=== PATIENT | female | born 1940 | race Two or more races ===

== ENCOUNTER 2020-06-09 08:46 | Inpatient (IN) | payer OTHER ==
[~2020-06-09] VITALS: Ht 160 cm; Wt 92.4 kg
[~2020-06-09 08:46] MED LIST: CALC600T10 OR; HYDR-4607 PO; OMEP20CA74 OR
[2020-06-09] MEDS ORDERED: SODIUM CHLORIDE 0.9% 1,000 ML IV ONE (10:27)
[2020-06-09 11:59] LABS: Urine Bacteria NONE SEEN /hpf (None Seen); Urine Blood Negative /uL (Negative); Urine Mucus FEW (None Seen); Urine WBC 1 /hpf (0 - 5)
[2020-06-09 13:20] LABS: Basophils # (auto) 0 10 ^3/uL (0-0.2); Basophils % (auto) 0.1 % (0.0-2.0); Eosinophils # (auto) 0 10 ^3/uL (0-0.8); Hemoglobin 13.3 g/dL (12.2-16.2); Lymphocytes # (auto) 0.5 10 ^3/uL (0.4-5.4); Lymphocytes % (auto) 3.6 % (10.0-50.0); Mean Corpuscular Hemoglobin 32.2 pg (28.0-32.0); Mean Corpuscular Hgb Conc. 33.1 g/dL (32.0-36.0); Monocytes # (auto) 0.4 10 ^3/uL (0-1.3); Neutrophils # (auto) 11.8 10 ^3/uL (1.6-8.6); Neutrophils % (auto) 93.3 % (37.0-80.0); Platelet Count (auto) 171 10^3/uL (140-450); Red Blood Cells 4.12 10^6/uL (4.0-5.20); Red Cell Distribution Width 14.9 % (11.8-14.3); White Blood Cell 12.7 10^3/uL (4.4-10.8)
[2020-06-09 13:38] LABS: INR 1.05 (0.9-1.15)
[2020-06-09 13:43] LABS: Albumin 3.4 g/dL (3.4-5.0); BUN/Creatinine Ratio 21.2; Magnesium 2.4 mg/dL (1.6-2.6); Potassium 3.6 mmol/L (3.5-5.1)
[2020-06-09 13:46] LABS: Bilirubin, Total 0.8 mg/dL (0.2-1.0)
[2020-06-09] MEDS ORDERED: NITROGLYCERIN 0.4 MG SL TAB SL PRN ×2 (16:15→17:15)
[2020-06-09] MEDS ORDERED: MORPHINE SULF INJ 2 MG/ML SYRINGE 1ML IV PRN ×3 (16:15→17:15)
[2020-06-09] MEDS ORDERED: hydrALAZINE HCL 20 MG/ML VL IV PRN (17:15)
[2020-06-09] MEDS ORDERED: LORazepam 0.5 MG TAB PO PRN (17:15)
[2020-06-09] MEDS ORDERED: ALUM & MAG HYDROX-SIMETH LIQ(MAALOX) 30 ML PO PRN (17:15)
[2020-06-09] MEDS ORDERED: ONDANSETRON HCL 4 MG/2 ML VIAL IV PRN (17:15)
[2020-06-09] MEDS ORDERED: HYDROcodone-ACET 5/325MG TAB PO PRN (17:15)
[2020-06-09] MEDS ORDERED: DOCUSATE SOD 100 MG CAP PO PRN (17:15)
[2020-06-09] MEDS ORDERED: cefTRIAXone 1GM/50ML D5W 50 ML IV ONE (17:15)
[2020-06-09] MEDS ORDERED: CALCIUM W/VIT D (600MG/400IU) TAB PO ONE (17:15)
--- NOTE | 2020-06-09 17:50 | NUR ---
PATIENT UP TO TELEMETRY FLOOR FROM ER. ADMITTED WITH RIGHT HIP FRACTURE. VITALS STABLE AND PATIENT STATES SHE HAS NO COMPLAINTS OF PAIN AT THIS TIME UNLESS SHE MOVES HER RIGHT LEG. WAS MEDICATED IN THE ER FOR PAIN
[2020-06-09 18:15] VITALS: BP 138/58
[2020-06-09] MEDS: SODIUM CHLORIDE 0.9% 1,000 ML IV SCH (18:20)
[2020-06-09 18:32] LABS: Cholesterol 181 mg/dL (< 200); HDL Cholesterol 41 mg/dL (40-59); LDL Cholesterol 127 mg/dL (< 100); Triglycerides 120 mg/dL (< 150)
[2020-06-09 18:44] VITALS: BP 138/58
[2020-06-09 18:48] LABS: Alcohol, Urine < 3.0 mg/dL (0-10); Amphetamine Screen, Urine NEGATIVE (NEGATIVE); Barbiturate Scree,Urine NEGATIVE (NEGATIVE); Benzodiazephine Screen, Urine NEGATIVE (NEGATIVE); Cannabinoid Screen, Urine NEGATIVE (NEGATIVE); Cocaine Screen, Urine NEGATIVE (NEGATIVE); Opiate Scree,Urine NEGATIVE (NEGATIVE); Phencyclidine Screen, Urine NEGATIVE (NEGATIVE)
--- NOTE | 2020-06-09 19:30 | NUR ---
Opening shift note Patient A&Ox4, no SOB, or s/s of distress. Tilley intact draining clear yellow urine. Discussed POC with patient who verbalized understanding. Patient stated that she did not have pain as long as she doesn't move her right hip/leg. Bed in lowest locked position with 2 side rails up, call light within reach. Will continue to monitor.
[2020-06-09 22:00] VITALS: BP 138/66
[2020-06-10 05:00] VITALS: BP 146/68
--- NOTE | 2020-06-10 05:30 | NUR ---
COVID SWAB TAKEN AND SENT TO LAB
[2020-06-10 06:04] LABS: Basophils # (auto) 0 10 ^3/uL (0-0.2); Basophils % (auto) 0.1 % (0.0-2.0); Eosinophils # (auto) 0 10 ^3/uL (0-0.8); Eosinophils % (auto) 0.1 % (0.0-7.0); Hematocrit 35.6 % (36.0-46.0); Hemoglobin 11.7 g/dL (12.2-16.2); Lymphocytes # (auto) 1.4 10 ^3/uL (0.4-5.4); Lymphocytes % (auto) 16.6 % (10.0-50.0); Mean Corpuscular Hemoglobin 32.1 pg (28.0-32.0); Mean Corpuscular Hgb Conc. 32.9 g/dL (32.0-36.0); Mean Corpuscular Volume 97.6 fL (80.0-100.0); Monocytes # (auto) 0.9 10 ^3/uL (0-1.3); Monocytes % (auto) 10.6 % (0.0-12.0); Neutrophils % (auto) 72.6 % (37.0-80.0); Platelet Count (auto) 162 10^3/uL (140-450); Red Blood Cells 3.64 10^6/uL (4.0-5.20); Red Cell Distribution Width 15.2 % (11.8-14.3); White Blood Cell 8.2 10^3/uL (4.4-10.8)
[2020-06-10 06:18] LABS: INR 1.03 (0.9-1.15); Partial Thromboplastin Time 26.7 sec (23.0-31.2)
[2020-06-10 06:31] LABS: Potassium 3.7 mmol/L (3.5-5.1)
[2020-06-10 06:42] LABS: BUN/Creatinine Ratio 21.2; Calcium 8.3 mg/dL (8.5-10.1); Magnesium 2.5 mg/dL (1.6-2.6); Phosphorus 3.5 mg/dL (2.5-4.90); Total Protein 6.3 g/dL (6.4-8.2)
[2020-06-10] MEDS: LEVOTHYROXINE SODIUM 25 MCG TAB PO SCH (07:30)
[2020-06-10 08:48] VITALS: BP 133/63
[2020-06-10] MEDS ORDERED: ENOXAPARIN SOD 40 MG/0.4 ML SYRINGE SC SCH (10:00)
--- NOTE | 2020-06-10 11:05 | NUR ---
LEFT MESSAGE WITH DR. CARRINGTON REGARDING CARDIO CONSULT FOR SURGICAL CLEARANCE. HE STATED HE DID NOT GET THE PREVIOUS MESSAGE BUT WILL TAKE OF THE CONSULT. ZEB WAS NOTIFIED PATIENT IS SCHEDULED FOR SURGERY AT 0900 TOMORROW
[2020-06-10] MEDS: cefTRIAXone 1GM/50ML D5W 50 ML IV SCH (11:17)
[2020-06-10] MEDS: CALCIUM W/VIT D (600MG/400IU) TAB PO SCH (11:17)
[2020-06-10] MEDS: SODIUM CHLORIDE 0.9% 1,000 ML IV SCH (11:17)
[2020-06-10] MEDS: FLUoxetine HCL 20 MG CAP PO SCH (11:18)
[2020-06-10 12:33] VITALS: BP_SYST 141; BP_SYST 148; BP_DIAS 62; BP_DIAS 69
[2020-06-10 17:00] VITALS: BP 150/81
[2020-06-10] MEDS: ACETAMINOPHEN 325 MG TAB PO PRN (18:06)
--- NOTE | 2020-06-10 19:35 | NUR ---
Opening shift note Patient A&Ox4, respirations even and non-labored with no s/s of distress. Discussed POC, NPO at midnight, and procedure for the following day. Patient verbalized understanding. Tilley patent draining clear yellow urine. IV patent and intact. Bed in lowest locked position with 2 side rails up, call light within reach. Will continue to monitor.
[2020-06-10 22:00] VITALS: BP 129/56
[2020-06-11] VITALS (15 sets, daily range): BP systolic 103–134; BP diastolic 50–88
--- NOTE | 2020-06-11 | NUR ---
VS: HR 85, 95%, 108/55, 98.3, RR 18 Patient A&Ox4 without s/s of distress at this time. Addendum: 06/12/20 at 0249 by GONZALO KAUR RN RN Incorrect date entered. Correct date 06/12/2020
[2020-06-11] MEDS: ACETAMINOPHEN 325 MG TAB PO PRN ×2 (00:41→22:49)
--- NOTE | 2020-06-11 00:45 | NUR ---
Pain Patient c/o 5/10 hip pain. Patient did not want Homer but requested Tylenol. Administered 650 mg Tylenol per EMAR. Will continue to monitor.
--- NOTE | 2020-06-11 04:30 | NUR ---
CHG WIPES/CONSENTS/GOWN CHANGE Applied CHG wipes, and linen/gown change for surgery. Hospital nursing staff assisted with interpreting consents. Patient will discuss further questions she may have with the surgical staff.
[2020-06-11 05:23] LABS: Basophils # (auto) 0 10 ^3/uL (0-0.2); Basophils % (auto) 0.5 % (0.0-2.0); Eosinophils # (auto) 0.1 10 ^3/uL (0-0.8); Eosinophils % (auto) 0.9 % (0.0-7.0); Hematocrit 34.1 % (36.0-46.0); Hemoglobin 11.4 g/dL (12.2-16.2); Lymphocytes # (auto) 1.2 10 ^3/uL (0.4-5.4); Lymphocytes % (auto) 15.3 % (10.0-50.0); Mean Corpuscular Hemoglobin 32.8 pg (28.0-32.0); Mean Corpuscular Hgb Conc. 33.6 g/dL (32.0-36.0); Mean Corpuscular Volume 97.9 fL (80.0-100.0); Monocytes # (auto) 0.8 10 ^3/uL (0-1.3); Neutrophils # (auto) 5.8 10 ^3/uL (1.6-8.6); Neutrophils % (auto) 73.3 % (37.0-80.0); Platelet Count (auto) 139 10^3/uL (140-450); Red Blood Cells 3.48 10^6/uL (4.0-5.20); Red Cell Distribution Width 15.4 % (11.8-14.3)
[2020-06-11 05:37] LABS: INR 1.09 (0.9-1.15); Partial Thromboplastin Time 27.3 sec (23.0-31.2)
[2020-06-11 05:42] LABS: Albumin 2.9 g/dL (3.4-5.0); Calcium 7.5 mg/dL (8.5-10.1); Magnesium 2.4 mg/dL (1.6-2.6); Potassium 3.3 mmol/L (3.5-5.1)
[2020-06-11 05:47] LABS: BUN/Creatinine Ratio 19.2; Bilirubin, Total 0.8 mg/dL (0.2-1.0); Total Protein 6.2 g/dL (6.4-8.2)
[2020-06-11] MEDS: LEVOTHYROXINE SODIUM 25 MCG TAB PO SCH (06:44)
[2020-06-11] MEDS: SODIUM CHLORIDE 0.9% 1,000 ML IV SCH (06:44)
--- NOTE | 2020-06-11 08:20 | NUR ---
Patient left unit to OR.
[2020-06-11] MEDS ORDERED: ceFAZolin 1GM/50ML 50 ML IV ONE (08:26)
[2020-06-11] MEDS ORDERED: TETRACAINE 1% INJ 2 ML VIAL IJ ONE (08:30)
[2020-06-11] MEDS ORDERED: POTASSIUM CHL 20MEQ/100ML 100 ML IV ONE ×2 (08:33→09:45)
[2020-06-11] MEDS ORDERED: fentaNYL CITRATE 100 MCG/2 ML VL ONE (09:24)
[2020-06-11] MEDS ORDERED: MIDAZOLAM HCL 1MG/1ML-2 ML VIAL ONE (09:24)
[2020-06-11] MEDS ORDERED: KETAMINE HCL 10 ML ONE (09:24)
[2020-06-11] MEDS ORDERED: MORPHINE SULF(PF) 0.5MG/ML 10ML VIAL ONE (09:24)
[2020-06-11] MEDS ORDERED: GLYCOPYRROLATE 0.2 MG/ML 1ML VIAL ONE (09:25)
[2020-06-11] MEDS ORDERED: ONDANSETRON HCL 4 MG/2 ML VIAL ONE (09:25)
[2020-06-11] MEDS ORDERED: ePHEDrine SULFATE 50 MG/ML AMP ONE (09:25)
[2020-06-11] MEDS ORDERED: PHENYLEPHRINE HCL 10 MG/ML VL ONE (09:25)
[2020-06-11] MEDS ORDERED: PROPOFOL 10 MG/ML 20 ML IV ONE (09:27)
[2020-06-11] MEDS: CALCIUM W/VIT D (600MG/400IU) TAB PO SCH (10:00)
[2020-06-11] MEDS: FLUoxetine HCL 20 MG CAP PO SCH (10:00)
[2020-06-11] MEDS ORDERED: diphenhdrAMINE HCL 50 MG/1 ML VL IV PRN (12:00)
[2020-06-11] MEDS ORDERED: ONDANSETRON HCL 4 MG/2 ML VIAL IV PRN (12:00)
[2020-06-11] MEDS ORDERED: NALOXONE HCL 0.4 MG/ML VIAL IV PRN (12:00)
[2020-06-11] MEDS ORDERED: NALBUPHINE HCL 10 MG/1ml INJECTION SUBCUT ONE (12:00)
[2020-06-11] MEDS ORDERED: DexAMETHasone SOD PHOS 10MG/1ML VIAL INJ IV PRN (12:00)
--- NOTE | 2020-06-11 12:44 | NUR ---
Patient came back from OR, awake, alert, oriented and verbally responsive. On oxygen 2 L of nasal cannular. No respiratory distress noted. Skin is warm and dry to touch. Dressing to right hip, dry and intact, no drainage or bleeding noted. Denied any pain at this time. Tilley in place and draining clear yellow urine. Will continue to monitor.
--- NOTE | 2020-06-11 13:10 | NUR ---
Per OR PACU patient can resume diet.
[2020-06-11] MEDS: cefTRIAXone 1GM/50ML D5W 50 ML IV SCH (14:10)
[2020-06-11] MEDS ORDERED: LACTATED RINGER'S 1,000 ML IV SCH (15:05)
[2020-06-11] MEDS ORDERED: POTASSIUM CHL 20 Meq TABLET PO ONE (16:45)
--- NOTE | 2020-06-11 16:46 | NUR ---
IS at bedside. Teaching explained, patient verbalized understanding.
[2020-06-11] MEDS: LACTATED RINGER'S 1,000 ML IV SCH (18:26)
--- NOTE | 2020-06-11 19:20 | NUR ---
Opening shift note Assumed care of patient who is A&Ox4, respirations even and non-labored with no s/s of distress or c/o pain. Two dressings to right hip and thigh CDI. Tilley patent, draining clear yellow urine. IV flushed, patent and intact. VS 97.8, HR 110, RR 19, 118/65, 0/10 pain. Bed in lowest locked position with 2 side rails up, call light within reach. Will continue to monitor.
--- NOTE | 2020-06-11 20:00 | NUR ---
VS: 118/65, HR 110, RR 18, 98.4
--- NOTE | 2020-06-11 20:30 | NUR ---
Family for patient called Discussed patients POC and answered questions.
--- NOTE | 2020-06-11 21:00 | NUR ---
VS: HR 96, 98%, RR 18, 104/54 Addendum: 06/12/20 at 0255 by GONZALO KAUR RN RN Dressing clean, dry and intact. No s/s of swelling or bleeding at this time.
--- NOTE | 2020-06-11 22:00 | NUR ---
VS: HR 91, 96%, RR19, 107/50 Addendum: 06/12/20 at 0255 by GONZALO KAUR RN RN Dressing clean, dry, and intact. No s/s of swelling or bleeding at this time.
[2020-06-11] MEDS: ceFAZolin 1GM 2 GM in D5W 5% 100 ML IV SCH (22:48)
--- NOTE | 2020-06-11 22:50 | NUR ---
Pain Patient requesting Tylenol for 5/10 leg pain. Administered 650 mg Tylenol per EMAR. Will continue to monitor.
--- NOTE | 2020-06-11 23:00 | NUR ---
VS: HR 90, 97%, RR 18, 119/51 Addendum: 06/12/20 at 0254 by GONZALO KAUR RN RN Dressings clean, dry and intact. No s/s of swelling or bleeding at this time.
--- NOTE | 2020-06-11 23:55 | NUR ---
Pain reassessed Patient stated that she had no pain at this time. Will continue to monitor.
[2020-06-12] VITALS: BP 108/55
--- NOTE | 2020-06-12 | NUR ---
Patient telemetry box Patient telemetry box unable to be located. Phoned OR with no answer. dimmer board operator went to dept. and unable to locate. Asked for new box but unable to obtain. Will continue to try and locate.
--- NOTE | 2020-06-12 | NUR ---
VS: HR 85, 95%, 108/55, 98.3, RR 18 Patient A&Ox4 without s/s of distress at this time. Dressing clean, dry and intact, no s/s of swelling or bleeding at this time.
[2020-06-12 05:00] VITALS: BP 126/64
[2020-06-12 05:31] LABS: Hematocrit 28.7 % (36.0-46.0); Hemoglobin 9.5 g/dL (12.2-16.2)
[2020-06-12 05:52] LABS: Albumin 2.4 g/dL (3.4-5.0); Calcium 7.4 mg/dL (8.5-10.1); Potassium 3.8 mmol/L (3.5-5.1)
[2020-06-12 05:56] LABS: BUN/Creatinine Ratio 22.9; Bilirubin, Total 0.9 mg/dL (0.2-1.0); Total Protein 5.1 g/dL (6.4-8.2)
[2020-06-12] MEDS: LEVOTHYROXINE SODIUM 25 MCG TAB PO SCH (07:00)
--- NOTE | 2020-06-12 07:35 | NUR ---
Opening Note Received report from mold shifter RN. Patient is awake, alert and oriented x4. No signs or symptoms of distress noted at this time. Dressing to right hip is clean dry and intact. Patient is on room air, respirations even and unlabored. Patient denies pain at this time. Reviewed plan of care. Bed in low and locked position, call light within reach. Will continue to monitor Q1 hour and PRN.
--- NOTE | 2020-06-12 08:25 | NUR ---
pottery striper Patient placed on retail wireless sales consultant #[id number], sinus rhythm 82. Will continue to monitor Q1 hour and PRN.
[2020-06-12 08:50] VITALS: BP 125/73
[2020-06-12] MEDS: FLUoxetine HCL 20 MG CAP PO SCH (09:05)
[2020-06-12] MEDS: CALCIUM W/VIT D (600MG/400IU) TAB PO SCH (09:05)
[2020-06-12] MEDS: ENOXAPARIN SOD 40 MG/0.4 ML SYRINGE SC SCH (09:06)
[2020-06-12] MEDS: LACTATED RINGER'S 1,000 ML IV SCH ×2 (09:06→11:45)
--- NOTE | 2020-06-12 12:24 | NUR ---
Assessment Patient is a 80-year-old female who is alert and oriented. Patient primary language is [place]. Prior to admission patient lived home with her daughter Zach and functioned independently. Prior to admission patient could care for her own ADLs. Per patient she was watering her plants when she trip and fall and was unable to get up and her daughter called the adz worker. Per patient she does not have any medical equipment now. Advised patient there is a social service consult for skill nursing facility. Per patient she does not want to be placed at a skill nursing facility. Per patient she would like to return home. Per patient she has great family support. Informed patient I will let bedside nurse regarding order to SNF. Informed patient she has the right to participate in all discharge planning. Patient verbalized understanding. Patient will need home health service for physical therapy, walker and 3 in 1 bedside commode. Informed RN Summer. Addendum: 06/12/20 at 1225 by KRISTYN TAM Amended: Links added.
[2020-06-12 12:50] VITALS: BP 117/57
--- NOTE | 2020-06-12 13:47 | NUR ---
Est energy needs 1371-8125 kcal (18-20 kcal/kg BW 87.4kg) Est protein needs 52-68g (1-1.3g/kg IBW 52.3kg) WIll reassess prn. Addendum: 06/12/20 at [address] Amended: Links added.
[2020-06-12] MEDS: ceFAZolin 1GM 2 GM in D5W 5% 100 ML IV SCH ×3 (14:42→20:17)
--- NOTE | 2020-06-12 14:50 | NUR ---
Physical therapy Physical therapy at bedside working with patient. Patient up to chair. Patient instructed to call for assistance, call light within reach. Will continue to monitor Q1 hour and PRN.
[2020-06-12 17:00] VITALS: BP 131/59
--- NOTE | 2020-06-12 19:10 | NUR ---
Closing Note Report given to tea tree farm worker RN. No signs or symptoms of distress noted at this time.
[2020-06-12 22:00] VITALS: BP 128/64
[2020-06-13 05:00] VITALS: BP 124/60
[2020-06-13] MEDS: LEVOTHYROXINE SODIUM 25 MCG TAB PO SCH (06:56)
[2020-06-13 08:50] VITALS: BP 127/58
[2020-06-13] MEDS: ENOXAPARIN SOD 40 MG/0.4 ML SYRINGE SC SCH (09:39)
[2020-06-13] MEDS: FLUoxetine HCL 20 MG CAP PO SCH (09:39)
[2020-06-13] MEDS: CALCIUM W/VIT D (600MG/400IU) TAB PO SCH (09:39)
[2020-06-13] MEDS ORDERED: cefTRIAXone 1GM/50ML D5W 50 ML IV SCH (10:00)
[2020-06-13 10:32] LABS: Hematocrit 27.4 % (36.0-46.0); Hemoglobin 9.1 g/dL (12.2-16.2)
--- NOTE | 2020-06-13 11:10 | NUR ---
Hospitalist Rounding Dr. Simons at bedside, other RN in attendance to translate. Patient sitting out in chair at bedside. no complaint of pain at this time.
[2020-06-13] MEDS: LACTATED RINGER'S 1,000 ML IV SCH (11:45)
[2020-06-13 13:00] VITALS: BP 119/50
--- NOTE | 2020-06-13 16:06 | NUR ---
D/C Planning Regarding social service consult for home health physical therapy, 3 in 1 commode and walker. Clinical information was reviewed and approved by the medical group. Faxed clinical information to [facility]. Per [place] with [facility]:) they will deliver 3 in 1 commode and walker to bed side with an estimate of delivery between 16:30-19:00. Per [facility] with [facility] patient has been accepted and they will see patient within 24-48hrs upon d/c day. CRISTIN Acosta was informed.
[2020-06-13 17:00] VITALS: BP 120/54
--- NOTE | 2020-06-13 18:30 | NUR ---
DME DME equipment (walker and bedside commode) was delivered to patient at bedside.
[2020-06-13 21:50] VITALS: BP 121/55
[2020-06-13] MEDS: ACETAMINOPHEN 325 MG TAB PO PRN (22:23)
[2020-06-14 05:00] VITALS: BP 133/52
[2020-06-14] MEDS: LEVOTHYROXINE SODIUM 25 MCG TAB PO SCH (06:11)
[2020-06-14 06:36] LABS: Hematocrit 27.3 % (36.0-46.0); Hemoglobin 9.2 g/dL (12.2-16.2)
[2020-06-14 08:50] VITALS: BP 137/65
[2020-06-14] MEDS: CALCIUM W/VIT D (600MG/400IU) TAB PO SCH (10:07)
[2020-06-14] MEDS: ENOXAPARIN SOD 40 MG/0.4 ML SYRINGE SC SCH (10:08)
[2020-06-14] MEDS: FLUoxetine HCL 20 MG CAP PO SCH (10:08)
--- NOTE | 2020-06-14 10:41 | NUR ---
Physical Therapist at bedside twice this morning to work with patient. Patient sat in chair at bedside for an hour. He did some patient teaching for home management. Will discuss with patients fernando Ni regarding physical therapy care for home
--- NOTE | 2020-06-14 11:06 | NUR ---
Dr. Simons at bedside to discuss plan of care with patient
[2020-06-14 13:00] VITALS: BP 131/62
[2020-06-14] MEDS ORDERED: DOCU-94 PO (13:43)
[2020-06-14] MEDS ORDERED: APIX2.5T PO (13:43)
--- NOTE | 2020-06-14 14:30 | NUR ---
Placed call to patient room to reconfirm if she want to be discharge home. Per patient she wants be discharge home and her family is waiting for her arrival.
--- NOTE | 2020-06-14 15:56 | NUR ---
SPOKE WITH TRUDI, PATIENTS DAUGHTER AND NOTIFIED HER OF ALL DISCHARGE INSTRUCTIONS. SHE VERBALIZED UNDERSTANDING AND STATED HER BROTHER ANA WILL BE PICKING PATIENT UP AT 1700
--- NOTE | 2020-06-14 16:01 | NUR ---
D/C Planning Regarding social service consult for hospital bed. Clinical information was reviewed and approved by medical group for only 30 days. Faxed clinical information to [facility] and [facility]. Spoke to patient daughter Kelsey advising her hospital bed will only be authorized for 30 days. Kelsey verbalize understanding. Informed CRISTIN Adams. Contact [facility] spoke to Yoselyn. Advised [facility] patient address is incorrect and provided her with correct address. Provided Yoselyn with patient daughter Kelsey and [facility] contact number. Per [facility] hospital bed will deliver tonight.
[2020-06-14 16:50] VITALS: BP 125/57
--- NOTE | 2020-06-14 17:34 | NUR ---
Discharge instructions given as ordered. Encourage to follow up with Dr. Womack and Dr. Guzman as instructed, appointments made. All questions and concerns addressed. Patient verbalized understanding. Medication reconciliation form completed and copy given to patient. IV removed with catheter intact, pressure dressing applied, arnold catheter removed. Telemetry unit returned to ICU. Patient taken to vehicle via wheelchair with all personal belongings, accompanied by staff and family member. No distress noted at time of departure.
== END 2020-06-14 17:05 | disposition home health service (06) | DRG 481 ==
LOC: EDBD 08:46 → ER 08:46 → WEST WING 08:47 → TELE-WESTW 17:49
PROVIDERS: ADMIT Hospitalist; ATTEND Internal Medicine
PROC: 0SH904Z Insertion of Internal Fixation Device into Right Hip Joint, Open Approach (ICD-10-PCS; principal; 2020-06-11 09:25)
DX: S72.21XA Displaced subtrochanteric fracture of right femur, initial encounter for closed fracture (principal); R65.10 Systemic inflammatory response syndrome (SIRS) of non-infectious origin without acute organ dysfunction; D62 Acute posthemorrhagic anemia; N39.0 Urinary tract infection, site not specified; W19.XXXA Unspecified fall, initial encounter; E66.9 Obesity, unspecified; M19.90 Unspecified osteoarthritis, unspecified site; R73.9 Hyperglycemia, unspecified; K57.90 Diverticulosis of intestine, part unspecified, without perforation or abscess without bleeding; F41.1 Generalized anxiety disorder; F32.9 Major depressive disorder, single episode, unspecified; M85.80 Other specified disorders of bone density and structure, unspecified site; E87.6 Hypokalemia; E03.9 Hypothyroidism, unspecified; E78.5 Hyperlipidemia, unspecified; Z03.818 Encounter for observation for suspected exposure to other biological agents ruled out; W01.0XXA Fall on same level from slipping, tripping and stumbling without subsequent striking against object, initial encounter; M21.20 Flexion deformity, unspecified site; Z20.828 Contact with and (suspected) exposure to other viral communicable diseases; J45.909 Unspecified asthma, uncomplicated; Z96.652 Presence of left artificial knee joint; Z88.2 Allergy status to sulfonamides; Z79.899 Other long term (current) drug therapy; Z90.49 Acquired absence of other specified parts of digestive tract; Z87.891 Personal history of nicotine dependence; Z68.36 Body mass index [BMI] 36.0-36.9, adult; Y92.007 Garden or yard of unspecified non-institutional (private) residence as the place of occurrence of the external cause
CPT/HCPCS: 36415; 51702; 71045; 73501; 73502; 73700; 80053; 80061; 80307; 81001; 83036; 83735; 84100; 84443; 84484; 85014; 85018; 85025; 85610; 85730; 86850; 86900; 86901; 87040; 87086; 93005; 93306; 93971; 96361; 96374; 96375; A4565; C1713; C1769; G0378; J0690; J0696; J2250; J2405; J2704; J3480; J7060

== ENCOUNTER 2020-06-27 10:56 | Emergency (ER) | payer OTHER ==
[~2020-06-27] VITALS: Ht 160 cm; Wt 83.9 kg
[~2020-06-27 10:56] MED LIST changes: +APIX2.5T PO; +DOCU-94 PO
[2020-06-27 15:01] LABS: Basophils # (auto) 0.1 10 ^3/uL (0-0.2); Basophils % (auto) 0.9 % (0.0-2.0); Eosinophils # (auto) 0.1 10 ^3/uL (0-0.8); Eosinophils % (auto) 1.6 % (0.0-7.0); Hematocrit 37.7 % (36.0-46.0); Lymphocytes # (auto) 1.1 10 ^3/uL (0.4-5.4); Lymphocytes % (auto) 16.8 % (10.0-50.0); Mean Corpuscular Hgb Conc. 31.9 g/dL (32.0-36.0); Mean Corpuscular Volume 100.3 fL (80.0-100.0); Monocytes # (auto) 0.5 10 ^3/uL (0-1.3); Monocytes % (auto) 7.5 % (0.0-12.0); Neutrophils # (auto) 4.9 10 ^3/uL (1.6-8.6); Neutrophils % (auto) 73.2 % (37.0-80.0); Platelet Count (auto) 352 10^3/uL (140-450); Red Blood Cells 3.76 10^6/uL (4.0-5.20); White Blood Cell 6.7 10^3/uL (4.4-10.8)
[2020-06-27 15:15] LABS: Albumin 3.1 g/dL (3.4-5.0); Calcium 8.5 mg/dL (8.5-10.1); Magnesium 2.8 mg/dL (1.6-2.6); Potassium 3.9 mmol/L (3.5-5.1)
[2020-06-27 15:16] LABS: INR 1.03 (0.9-1.15); Partial Thromboplastin Time 27.4 sec (23.0-31.2)
[2020-06-27 15:19] LABS: BUN/Creatinine Ratio 23.9; Total Protein 6.8 g/dL (6.4-8.2)
[2020-06-27 16:00] VITALS: BP 148/58
== END 2020-06-27 16:31 | disposition left against medical advice (07) ==
LOC: ER 10:56
DX: T84.124A Displacement of internal fixation device of right femur, initial encounter (principal)
CPT/HCPCS: 36415; 80053; 83735; 85025; 85610; 85730